=== PATIENT | female | born 1965 | race Caucasian/White ===

== ENCOUNTER 2019-03-11 12:17 | Emergency (ER) | payer SELFPAY ==
[~2019-03-11] VITALS: Ht 162.6 cm; Wt 68.0 kg
[~2019-03-11 12:17] MED LIST: ESOM20CA PO; LEVO25TA7 PO; PANT40TA2 PO
[2019-03-11 12:29] VITALS: BP 106/76
--- NOTE | 2019-03-11 12:40 | NUR ---
ZENIA HAMEED AT BED SIDE FOR EVAL.
--- NOTE | 2019-03-11 13:17 | NUR ---
Patient discharged to home in stable condition. Written and verbal after care instructions given. Patient verbalizes understanding of instruction.
== END 2019-03-11 13:20 | disposition home or self-care (01) ==
LOC: ER 12:20
DX: T63.441A Toxic effect of venom of bees, accidental (unintentional), initial encounter (principal); E03.9 Hypothyroidism, unspecified; F41.9 Anxiety disorder, unspecified; Z90.89 Acquired absence of other organs; Z98.890 Other specified postprocedural states; Z79.899 Other long term (current) drug therapy; Y92.89 Other specified places as the place of occurrence of the external cause